=== PATIENT | female | born 1960 | race Caucasian/White ===

== ENCOUNTER 2017-10-30 11:38 | Day surgery (SDC) | payer OTHER ==
[2017-10-30] MEDS ORDERED: FENTAnyl 50 MCG/ML VIAL (14:10)
[2017-10-30] MEDS ORDERED: MIDAZOLAM 1 MG/ML 2 ML INJ ×2 (14:11)
== END 2017-10-30 14:25 | disposition home or self-care (01) ==
LOC: GIL 11:38
DX: K21.9 Gastro-esophageal reflux disease without esophagitis (principal); K29.70 Gastritis, unspecified, without bleeding; I10 Essential (primary) hypertension; E11.9 Type 2 diabetes mellitus without complications
CPT/HCPCS: 43239; 82962; 88305; 88312